=== PATIENT | female | born 1995 | race Caucasian/White ===

== ENCOUNTER 2025-06-27 07:04 | Inpatient (IN) | payer OTHER ==
[~2025-06-27] VITALS: Ht 170.2 cm; Wt 94.9 kg
[2025-06-27] MEDS ORDERED: FURO40 PO (07:48)
[2025-06-27 08:21] LABS: BASOPHILS ABSOLUTE AUTO 0.08 K/mm3 (0.00-0.23); BASOPHILS PERCENT AUTO 1 % (0-2); EOSINOPHILS ABSOLUTE AUTO 0.07 K/mm3 (0.00-0.68); EOSINOPHILS PERCENT AUTO 1 % (0-6); Hematocrit 49.7 % (33.0-51.0); Hemoglobin 16.2 g/dL (11.5-16.0); IMMATURE GRAN ABSOLUTE AUTO 0.03 K/mm3 (0.00-0.10); IMMATURE GRAN PERCENT AUTO 0 % (0-1); LYMPHOCYTES ABSOLUTE AUTO 3.29 K/mm3 (0.84-5.20); LYMPHOCYTES PERCENT AUTO 29 % (21-46); MONOCYTES ABSOLUTE AUTO 0.81 K/mm3 (0.16-1.47); MONOCYTES PERCENT AUTO 7 % (4-13); Mean Corpuscular HGB Conc 32.6 g/dL (31.5-36.5); Mean Corpuscular Volume 90 fL (80-100); NEUTROPHILS ABSOLUTE AUTO 7.27 K/mm3 (1.96-9.15); NEUTROPHILS PERCENT AUTO 63 % (41-73); NRBC ABSOLUTE 0.00 K/mm3 (0.00-0.02); NRBC Auto 0.0 /100 WBC (0.0-0.2); Platelet Count 205 K/mm3 (150-400); RDW Coefficient Variation 14.6 % (11.7-14.2); RDW Standard Deviation 48.4 fL (35.1-46.3)
[2025-06-27 08:41] LABS: Alanine Aminotransfer (ALT/SGP 58.0 U/L (12-78); Albumin, Blood 3.6 g/dL (3.4-5.0); Albumin/Globulin Ratio 0.9 (0.8-1.8); Anion Gap 12.0 mmol/L (3-11); Aspartate Aminotrans (AST/SGOT 49.0 U/L (12-37); Bilirubin, Total 1.6 mg/dL (0.1-1.0); Blood Urea Nitrogen 17.0 mg/dL (8-24); CO2, Blood 19.0 mmol/L (21-32); Calcium, Blood 8.9 mg/dL (8.5-10.1); Chloride, Blood 108.0 mmol/L (98-108); Creatinine, Blood 0.91 mg/dL (0.40-1.00); Globulin, Blood 4.1 g/dL (2.2-4.0); Glucose, Blood 86.0 mg/dL (70-99); Potassium, Blood 4.2 mmol/L (3.5-5.5); Sodium, Blood 135.0 mmol/L (136-145); Total Protein, Blood 7.7 g/dL (6.4-8.2)
[2025-06-27 15:18] VITALS: BP 138/108
[2025-06-27] MEDS ORDERED: AMOX875 PO (15:21)
--- NOTE | 2025-06-27 15:46 | NUR ---
ADMISSION NOTE. PT AOX4, PLEASANT, COOPERATIVE, ABLE TO MAKE NEEDS KNOWN. REPORTS RIGHT SIDED MOUTH PAIN D/T CRACKED TOOTH THAT SHE WAS SUPPOSED TO HAVE EXTRACTED SOON. SPOKE W/ DR. WHITLEY FOR PAIN MANAGEMENT, AWAITING ORDERS. INDENDENT TO BATHROOM, EDUCATED ON IMPORTANCE OF CALLING FOR ASSISTANCE NEEDED AND COLLECTING URINE FOR ACCURATE I+Os. PT VOICED UNDERSTANDING. 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 ADMISSION PROCESS COMPLETED PER PROTOCOL. RUNNING SINUS TACH ON TELE. PT DENIES CHEST PAIN/PRESSURE. BP MILDLY ELEVATED BUT STABLE. BED LOCKED IN LOWEST POSITION. [facility].
--- NOTE | 2025-06-27 16:40 | NUR ---
SHIFT SUMMARY. NO ACUTE CHANGES SINCE ADMISSION NOTE, SEE PREVIOUS NOTE FOR DETAILS. REMAINS ON ROOM AIR. CONTINUES TO RUN SINUS TACH. PAIN MEDICATIONS GIVEN PER EMAR FOR TOOTH PAIN. DENTAL HYGENIST TO VISIT TO ASSESS TOOTH. BED LOCKED IN LOWEST POSITION. CALL LIGHT WITHIN REACH
[2025-06-27 20:08] VITALS: BP 137/92
[2025-06-27 23:30] VITALS: BP 143/98
[2025-06-28 03:44] LABS: BASOPHILS ABSOLUTE AUTO 0.07 K/mm3 (0.00-0.23); BASOPHILS PERCENT AUTO 1 % (0-2); EOSINOPHILS ABSOLUTE AUTO 0.09 K/mm3 (0.00-0.68); EOSINOPHILS PERCENT AUTO 1 % (0-6); Hematocrit 48.2 % (33.0-51.0); Hemoglobin 15.8 g/dL (11.5-16.0); IMMATURE GRAN ABSOLUTE AUTO 0.02 K/mm3 (0.00-0.10); IMMATURE GRAN PERCENT AUTO 0 % (0-1); LYMPHOCYTES ABSOLUTE AUTO 2.64 K/mm3 (0.84-5.20); LYMPHOCYTES PERCENT AUTO 34 % (21-46); MONOCYTES ABSOLUTE AUTO 0.65 K/mm3 (0.16-1.47); MONOCYTES PERCENT AUTO 8 % (4-13); Mean Corpuscular HGB Conc 32.8 g/dL (31.5-36.5); Mean Corpuscular Volume 89 fL (80-100); NEUTROPHILS ABSOLUTE AUTO 4.30 K/mm3 (1.96-9.15); NEUTROPHILS PERCENT AUTO 55 % (41-73); NRBC ABSOLUTE 0.00 K/mm3 (0.00-0.02); NRBC Auto 0.0 /100 WBC (0.0-0.2); Platelet Count 191 K/mm3 (150-400); RDW Coefficient Variation 14.8 % (11.7-14.2); RDW Standard Deviation 47.9 fL (35.1-46.3)
[2025-06-28 04:07] VITALS: BP 128/102
[2025-06-28 05:24] LABS: U Amphetamine Screen DETECTED; U Barbituate Screen Not Detected; U Benzodiazapine Screen Not Detected; U Buprenorphine Screen Not Detected; U Cannabinoids Screen Not Detected; U Cocaine Screen Not Detected; U Methadone Screen Not Detected; U Methamphetamine Screen DETECTED; U Opiates Screen Not Detected; U Oxycodone Screen Not Detected; U Phencyclidine Screen Not Detected
--- NOTE | 2025-06-28 06:35 | NUR ---
NO ACUTE EVENTS OVERNIGHT. PT REQUESTED PRN PAIN MEDS FOR RIGHT TOOTH PAIN. PAIN WAS CONSTANT AT A "5" ON A SCALE OF 0-10. VITAL SIGNS WERE STABLE THROUGHOUT THE NIGHT. PT IS INDEPENDENT IN THE ROOM. BED IS LOCKED AND IN LOWEST POSITION. PT DENIES ANY S/S OF DISTRESS AT THIS TIME.
[2025-06-28 06:54] LABS: Alanine Aminotransfer (ALT/SGP 56.0 U/L (12-78); Albumin, Blood 3.1 g/dL (3.4-5.0); Albumin/Globulin Ratio 0.8 (0.8-1.8); Anion Gap 13.0 mmol/L (3-11); Aspartate Aminotrans (AST/SGOT 42.0 U/L (12-37); Bilirubin, Direct 0.3 mg/dL (0.0-0.3); Bilirubin, Indirect 0.5 mg/dL (0.1-0.7); Bilirubin, Total 0.8 mg/dL (0.1-1.0); Blood Urea Nitrogen 21.0 mg/dL (8-24); CO2, Blood 20.0 mmol/L (21-32); Calcium, Blood 8.0 mg/dL (8.5-10.1); Chloride, Blood 106.0 mmol/L (98-108); Creatinine, Blood 0.7 mg/dL (0.40-1.00); Globulin, Blood 4.1 g/dL (2.2-4.0); Glucose, Blood 96.0 mg/dL (70-99); Potassium, Blood 3.7 mmol/L (3.5-5.5); Sodium, Blood 135.0 mmol/L (136-145); Total Protein, Blood 7.2 g/dL (6.4-8.2)
[2025-06-28 08:15] VITALS: BP 129/104
[2025-06-28] MEDS ORDERED: Enoxaparin 40 MG/0.4 ML SYR SC SCH (09:00)
--- NOTE | 2025-06-28 09:04 | NUR ---
AM NOTE PT ALERT, ORIENTED X4; CALM AND COOPERATIVE WITH CARE. PT UP IND IN ROOM. PT REPORTS HAVING TOOTH/JAW PAIN, WILL MEDICATED PER ORDERS; PT STATES SHE WAS TAKING "DOUBLE" THE RECOMMENDED DOSE OF ACETAMINOPHEN AND OCCASIONALLY TOOK IBUPROFEN. TELE SINUS TACH 110-120'S, DBP ELEVATED, EDEMA NOTED REDNESS NOTED TO BLE, JVD NOTED. ABD SOFT, NOTENDER, HYPOACTIVE BT, PT REPORTS LAST BM YESTERDAY. SPO2 >90% ON RA, NO S/SX OF DISTRESS NOTED AT REST, REPORTS SOB WITH EXERTION. OTHER VSS. CALL LIGHT WITH IN REACH. DR LOGAN AT BEDSIDE THIS AM.
[2025-06-28 11:59] VITALS: BP 133/92
[2025-06-28 15:34] VITALS: BP 131/82
--- NOTE | 2025-06-28 16:48 | NUR ---
Patient is lying in bed and alert. She tells me about her new diagnosis and her struggles with processing this news. She then tells me about her 6 y/o dtr who is staying with her dad for the summer. Her dtr's dad has also been diagnosed with CHF and COPD and will likely have a very short life span. She talks about her need to continue working and her fears about the mounting costs from hospital bills and she discloses her typically poor coping skills. We talk about the patient's mom and how she is a very strong women and raised two girls by herself and always had a solid Bahai rayo that brought her through her troubling circumstances. The patient states that she would like to move in that direction now. She welcomes prayer, which I gladly supply as well as therapeutic listening, spiritual guidance and anxiety containment. The patient responded well and showed signs of an increase in her peace. Spiritual care will remain available.
--- NOTE | 2025-06-28 18:26 | NUR ---
SHIFT SUMMARY NO ACUTE CHANGES NOTED. DR LOGAN, DR ZIMMERMAN/DR CISSE AND DR WHITLEY ROUNDED THIS AM. STARTED ON SIDENIFIL THIS AFTERNOON. CONTINUING DIURESIS. VSS. CALL LIGHT WITHIN REACH.
[2025-06-28 19:47] VITALS: BP 112/72
[2025-06-28 22:19] LABS: Anion Gap 9.0 mmol/L (3-11); Blood Urea Nitrogen 25.0 mg/dL (8-24); CO2, Blood 32.0 mmol/L (21-32); Calcium, Blood 9.8 mg/dL (8.5-10.1); Chloride, Blood 97.0 mmol/L (98-108); Creatinine, Blood 0.99 mg/dL (0.40-1.00); Glucose, Blood 85.0 mg/dL (70-99); Magnesium, Blood 2.1 mg/dL (1.6-2.4); Potassium, Blood 3.6 mmol/L (3.5-5.5); Sodium, Blood 134.0 mmol/L (136-145)
[2025-06-28 23:16] VITALS: BP 113/80
[2025-06-29 03:34] VITALS: BP 123/83
[2025-06-29 04:08] LABS: BASOPHILS ABSOLUTE AUTO 0.08 K/mm3 (0.00-0.23); BASOPHILS PERCENT AUTO 1 % (0-2); EOSINOPHILS ABSOLUTE AUTO 0.11 K/mm3 (0.00-0.68); EOSINOPHILS PERCENT AUTO 1 % (0-6); Hemoglobin 18.5 g/dL (11.5-16.0); IMMATURE GRAN ABSOLUTE AUTO 0.02 K/mm3 (0.00-0.10); IMMATURE GRAN PERCENT AUTO 0 % (0-1); LYMPHOCYTES ABSOLUTE AUTO 2.26 K/mm3 (0.84-5.20); LYMPHOCYTES PERCENT AUTO 21 % (21-46); MONOCYTES ABSOLUTE AUTO 0.97 K/mm3 (0.16-1.47); MONOCYTES PERCENT AUTO 9 % (4-13); Mean Corpuscular HGB Conc 32.9 g/dL (31.5-36.5); Mean Corpuscular Volume 89 fL (80-100); NEUTROPHILS ABSOLUTE AUTO 7.24 K/mm3 (1.96-9.15); NEUTROPHILS PERCENT AUTO 68 % (41-73); NRBC ABSOLUTE 0.00 K/mm3 (0.00-0.02); NRBC Auto 0.0 /100 WBC (0.0-0.2); Platelet Count 210 K/mm3 (150-400); RDW Coefficient Variation 14.8 % (11.7-14.2); RDW Standard Deviation 47.8 fL (35.1-46.3)
[2025-06-29 04:14] LABS: Hematocrit 56.3 % (33.0-51.0)
[2025-06-29 04:47] LABS: Alanine Aminotransfer (ALT/SGP 63.0 U/L (12-78); Albumin, Blood 3.8 g/dL (3.4-5.0); Albumin/Globulin Ratio 0.8 (0.8-1.8); Anion Gap 12.0 mmol/L (3-11); Aspartate Aminotrans (AST/SGOT 51.0 U/L (12-37); Bilirubin, Total 1.6 mg/dL (0.1-1.0); Blood Urea Nitrogen 25.0 mg/dL (8-24); CO2, Blood 28.0 mmol/L (21-32); Calcium, Blood 10.2 mg/dL (8.5-10.1); Chloride, Blood 95.0 mmol/L (98-108); Creatinine, Blood 0.86 mg/dL (0.40-1.00); Globulin, Blood 5.0 g/dL (2.2-4.0); Glucose, Blood 93.0 mg/dL (70-99); Potassium, Blood 3.5 mmol/L (3.5-5.5); Sodium, Blood 131.0 mmol/L (136-145); Total Protein, Blood 8.8 g/dL (6.4-8.2)
--- NOTE | 2025-06-29 05:55 | NUR ---
SHIFT SUMMARY: PT A&OX4 CALM AND COOPERATIVE. ABLE TO MAKE NEEDS KNOWN AND CALLS APPROPRAITELY. BP STABLE. ST 110S-120S. MAINTAINED 90-95% ON RA. DENIED SOB, CHEST PAIN/PRESSURE. PT ? BLE LEG CRAMPS. RESIDENT NOTIFIED AND ORDERED BMP/MG LABS ORDERED. PT REPORTS BODY ACHES AND SENSITIVE TO TOUCH. RESIDENT NOTIFIED OF PT COMPLAINT AND LAB RESULTS. RESIDENT ORDERED ONE TIME ATIVAN. PT REPORTED RELIEF OF PAIN AND SENSITIVITY AFTER MEDICATING. CONTINUING TO RECEIVE IV DIURETICS. INDEPENDENT IN ROOM. DAILY WEIGHT COMPLETED. BED IS LOW AND LOCKED. CALL LIGHT WITHIN REACH. WILL CONTINUE PLAN OF CARE TILL REPORT GIVEN TO DAY NURSE.
[2025-06-29 08:04] VITALS: BP 128/89
[2025-06-29 12:50] VITALS: BP 119/77
[2025-06-29 15:18] VITALS: BP 119/79
--- NOTE | 2025-06-29 18:31 | NUR ---
Shift Summary Pt alert, oriented x4; anxious at times, cooperative with care. Pt resting in bed, up in ind in room. Pt reports pain to right jaw, medicated per emar. Pt reporting cramping to both side of ribs and ble; discussed with Dr Strickland, new orders for potassium and ativan and decreased frequency on lasix. Tele sinus tach, bp stable, edema to ble improving. Spo2 90-94% on ra. Abd soft, nontender, +bt t/o. Other vss. Call light withing reach.
[2025-06-29 19:35] VITALS: BP 115/86
[2025-06-29] MEDS ORDERED: Lactobacil 2-S.Thermo-Bifido 1 1 Cap PO SCH (21:00)
[2025-06-29 23:34] VITALS: BP 117/83
[2025-06-30 04:22] LABS: BASOPHILS ABSOLUTE AUTO 0.09 K/mm3 (0.00-0.23); BASOPHILS PERCENT AUTO 1 % (0-2); EOSINOPHILS ABSOLUTE AUTO 0.16 K/mm3 (0.00-0.68); EOSINOPHILS PERCENT AUTO 1 % (0-6); Hemoglobin 19.1 g/dL (11.5-16.0); IMMATURE GRAN ABSOLUTE AUTO 0.04 K/mm3 (0.00-0.10); IMMATURE GRAN PERCENT AUTO 0 % (0-1); LYMPHOCYTES ABSOLUTE AUTO 2.84 K/mm3 (0.84-5.20); LYMPHOCYTES PERCENT AUTO 24 % (21-46); MONOCYTES ABSOLUTE AUTO 1.19 K/mm3 (0.16-1.47); MONOCYTES PERCENT AUTO 10 % (4-13); Mean Corpuscular HGB Conc 34.0 g/dL (31.5-36.5); Mean Corpuscular Volume 88 fL (80-100); NEUTROPHILS ABSOLUTE AUTO 7.57 K/mm3 (1.96-9.15); NEUTROPHILS PERCENT AUTO 64 % (41-73); NRBC ABSOLUTE 0.00 K/mm3 (0.00-0.02); NRBC Auto 0.0 /100 WBC (0.0-0.2); Platelet Count 227 K/mm3 (150-400); RDW Coefficient Variation 16.3 % (11.7-14.2); RDW Standard Deviation 46.7 fL (35.1-46.3)
[2025-06-30 04:24] LABS: Hematocrit 56.1 % (33.0-51.0)
[2025-06-30 04:35] VITALS: BP 139/92
[2025-06-30 04:53] LABS: Alanine Aminotransfer (ALT/SGP 59.0 U/L (12-78); Albumin, Blood 3.4 g/dL (3.4-5.0); Albumin/Globulin Ratio 0.7 (0.8-1.8); Anion Gap 11.0 mmol/L (3-11); Aspartate Aminotrans (AST/SGOT 46.0 U/L (12-37); Bilirubin, Total 1.7 mg/dL (0.1-1.0); Blood Urea Nitrogen 30.0 mg/dL (8-24); CO2, Blood 26.0 mmol/L (21-32); Calcium, Blood 9.5 mg/dL (8.5-10.1); Chloride, Blood 97.0 mmol/L (98-108); Creatinine, Blood 0.89 mg/dL (0.40-1.00); Globulin, Blood 5.2 g/dL (2.2-4.0); Glucose, Blood 98.0 mg/dL (70-99); Potassium, Blood 3.7 mmol/L (3.5-5.5); Sodium, Blood 130.0 mmol/L (136-145); Total Protein, Blood 8.6 g/dL (6.4-8.2)
[2025-06-30 06:02] LABS: ANTI-NUCLEAR AB ANA,IGG ELISA None Detected (None Detected)
--- NOTE | 2025-06-30 06:46 | NUR ---
SHIFT SUMMARY: PT A&OX4 CALM AND COOPERATIVE. ABLE TO MAKE NEEDS KNOWN AND CALLS APPROPRAITELY. BP STABLE. ST 120S-130S. WILL REACH 140S UPON EXERTION. DENIED SOB, CHEST PAIN/PRESSURE. DESAT AND MAINTAINED 88% SPO2. APPLIED 2L NC AND MAINTAINED >92%. INDEPENDENT IN ROOM. DAILY WEIGHT COMPLETED. BED IS LOW AND LOCKED. CALL LIGHT WITHIN REACH. WILL CONTINUE PLAN OF CARE TILL REPORT GIVEN TO DAY NURSE.
[2025-06-30 08:59] VITALS: BP 139/94
[2025-06-30 09:50] LABS: HIV 1,2 COMBO ANTIGEN/ANTIBODY Negative (Negative)
[2025-06-30 12:08] VITALS: BP 118/88
[2025-06-30 16:49] VITALS: BP 107/81
--- NOTE | 2025-06-30 17:48 | NUR ---
SHIFT SUMMARY PT ALERT, ORIENTED X4; ANXIOUS, COOPERATIVE WITH CARE. PT SMOKES CIGARETTES, NOTIFIED, NEW ORDERS FOR NICOTINE PATCH. IND IN ROOM. PT REPORTS GENERALIZED PAIN TODAY, MEDICATED PER ORDERS. TELE SINUS TACH 120-130'S AT REST, 130-140 WITH ACITIVTY; MDS AWARE, EDEMA NOTED BLE. SPO2 >90% ON RA, BREATHING EVEN AND UNALBORED, SOB WITH EXERTION. ABD SOFT, NONTENDER, +BT. PT REPORTS DIZZINESS AFTER SHOWER. VSS. DR KWOK AT BEDSIDE, EDUCATED EXTENSIVLY ON DIAGNOSIS AND PROGNOSIS. CALL LIGHT WITHIN REACH.
[2025-06-30 20:53] VITALS: BP 119/73
[2025-06-30 23:25] VITALS: BP 126/92
[2025-07-01 03:24] VITALS: BP 125/89
--- NOTE | 2025-07-01 05:42 | NUR ---
SHIFT SUMMARY: PT A&OX4 CALM AND COOPERATIVE. ABLE TO MAKE NEEDS KNOWN AND CALLS APPROPRIATELY. BP STABLE. ST 120S-130S. 140S WITH EXERTION. BP STABLE. MAINTAINING >90% ON RA. PT REPORTS PAIN IN BLE. MEDICATED PER EMAR. PT REPORTS BM TONIGHT. INDEPENDENT IN ROOM. BED IS LOW AND LOCKED. CALL LIGHT WITHIN REACH. WILL CONTINUE PLAN OF CARE TILL REPORT GIVEN TO DAY NURSE.
[2025-07-01 05:48] LABS: BASOPHILS ABSOLUTE AUTO 0.09 K/mm3 (0.00-0.23); BASOPHILS PERCENT AUTO 1 % (0-2); EOSINOPHILS ABSOLUTE AUTO 0.16 K/mm3 (0.00-0.68); EOSINOPHILS PERCENT AUTO 2 % (0-6); Hemoglobin 18.6 g/dL (11.5-16.0); IMMATURE GRAN ABSOLUTE AUTO 0.03 K/mm3 (0.00-0.10); IMMATURE GRAN PERCENT AUTO 0 % (0-1); LYMPHOCYTES ABSOLUTE AUTO 2.51 K/mm3 (0.84-5.20); LYMPHOCYTES PERCENT AUTO 24 % (21-46); MONOCYTES ABSOLUTE AUTO 1.27 K/mm3 (0.16-1.47); MONOCYTES PERCENT AUTO 12 % (4-13); Mean Corpuscular HGB Conc 33.0 g/dL (31.5-36.5); Mean Corpuscular Volume 88 fL (80-100); NEUTROPHILS ABSOLUTE AUTO 6.42 K/mm3 (1.96-9.15); NEUTROPHILS PERCENT AUTO 61 % (41-73); NRBC ABSOLUTE 0.00 K/mm3 (0.00-0.02); NRBC Auto 0.0 /100 WBC (0.0-0.2); Platelet Count 220 K/mm3 (150-400); RDW Coefficient Variation 14.6 % (11.7-14.2); RDW Standard Deviation 46.3 fL (35.1-46.3)
[2025-07-01 05:49] LABS: Hematocrit 56.3 % (33.0-51.0)
[2025-07-01 06:12] LABS: Alanine Aminotransfer (ALT/SGP 57.0 U/L (12-78); Albumin, Blood 3.4 g/dL (3.4-5.0); Albumin/Globulin Ratio 0.7 (0.8-1.8); Anion Gap 8.0 mmol/L (3-11); Aspartate Aminotrans (AST/SGOT 46.0 U/L (12-37); Bilirubin, Total 1.8 mg/dL (0.1-1.0); Blood Urea Nitrogen 24.0 mg/dL (8-24); CO2, Blood 30.0 mmol/L (21-32); Calcium, Blood 9.5 mg/dL (8.5-10.1); Chloride, Blood 95.0 mmol/L (98-108); Creatinine, Blood 0.77 mg/dL (0.40-1.00); Globulin, Blood 5.2 g/dL (2.2-4.0); Glucose, Blood 107.0 mg/dL (70-99); Potassium, Blood 3.1 mmol/L (3.5-5.5); Sodium, Blood 130.0 mmol/L (136-145); Total Protein, Blood 8.6 g/dL (6.4-8.2)
[2025-07-01 08:57] VITALS: BP 122/81
--- NOTE | 2025-07-01 10:22 | NUR ---
ASSUMPTION OF CARE: A/O X 4 ABLE TO MAKE NEEDS KNOWN, WITHDRAWN, DENIES CHEST PAIN PRESSURE OR SOB AT REST. ST 120-140 THIS AM. IMPROVING BLE SIZE, MINIMALLY TRACE EDEMA. DENIES STOMACH PAIN, TENDERNESS, DENIES PROBLEMS WITH URINATION. ONLY ABNORMAL VITAL WAS HR. AFEBRILE. CALLS APPROPRIATELY. PATIENT K+ 3.1 PROVIDER PLACED K DUR, NO ACUTE CONCERN.
[2025-07-01] MEDS ORDERED: POTCHL20ER PO (13:56)
[2025-07-01] MEDS ORDERED: NICODERM CQ1 EA11 TOP (13:56)
[2025-07-01] MEDS ORDERED: SILD25T PO (13:56)
[2025-07-01 14:45] VITALS: BP 127/90
[2025-07-02 18:13] LABS: HEPATITIS A ANTIBODY, IGM Negative (Negative); HEPATITIS C AB CIA INTERP Negative (Negative); HEPATITIS C ANTIBODY CIA INDEX 0.05 IV
== END 2025-07-01 15:27 | disposition home or self-care (01) | DRG 315 ==
LOC: ER 07:04 → PCU 13:33
PROVIDERS: Emergency Medicine; ADMIT Family Medicine
DX: I27.29 Other secondary pulmonary hypertension (principal); E87.1 Hypo-osmolality and hyponatremia; J90 Pleural effusion, not elsewhere classified; T43.651A Poisoning by methamphetamines accidental (unintentional), initial encounter; I50.810 Right heart failure, unspecified; F15.10 Other stimulant abuse, uncomplicated; F17.210 Nicotine dependence, cigarettes, uncomplicated; E87.6 Hypokalemia; R74.01 Elevation of levels of liver transaminase levels; Z79.899 Other long term (current) drug therapy; Z88.1 Allergy status to other antibiotic agents; Z88.8 Allergy status to other drugs, medicaments and biological substances
CPT/HCPCS: 36415; 71045; 71260; 76705; 78582; 80048; 80053; 80074; 80076; 82550; 83735; 83880; 84484; 85025; 85651; 86038; 86141; 87389; 93005; 93010; 93306; 96374-59; 99285-25; A9270; A9540; J1650; J1938; Q9967